=== PATIENT | male | born 1965 | race Caucasian/White ===

== ENCOUNTER 2021-08-15 12:06 | Inpatient (IN) | payer OTHER, SELFPAY ==
[~2021-08-15] VITALS: Ht 170.2 cm; Wt 86.2 kg
[2021-08-15 12:25] VITALS: BP 129/77
--- NOTE | 2021-08-15 12:30 | NUR ---
TENT 1
--- NOTE | 2021-08-15 12:32 | NUR ---
C/O COUGH X 11 DAYS, BODY ACH X 2 WEEKS, CHEST PAIN X 1 WEEK AND DIARRHEA,VOMITING BLOOD, LOSS OF APPITIE , WEAKNESS X 5 DAYS. COVID TESTED POSITIVE 5 DAYS AGO. PMH: DENIES
--- NOTE | 2021-08-15 13:00 | NUR ---
FLU, COVID ANTOINE, COVID PCR SWABS DONE.
[2021-08-15 14:10] LABS: APPEARANCE,URINE CLEAR (CLEAR); BILIRUBIN,URINE NEGATIVE (NEGATIVE); BLOOD, URINE 2+ (NEGATIVE); COLOR,URINE YELLOW (YELLOW); LEUKOCYTE ESTERASE ,URINE NEGATIVE (NEGATIVE); NITRITE, URINE NEGATIVE (NEGATIVE); UGLUCOSE NEGATIVE (NEGATIVE)
[2021-08-15] MEDS ORDERED: NACL 0.9% 2,000 ML IV ONE (14:35)
[2021-08-15] MEDS ORDERED: DEXAMETHASONE 4 MG/ML VIAL IVP ONE (14:35)
[2021-08-15] MEDS ORDERED: AZITHROMYCIN 500 MG in DEXTROSE 5% 250 ML IV ONE (14:35)
[2021-08-15 14:43] LABS: BASOPHILS % (AUTO) 0.3 % (0.0-2.0); EOSINOPHILS % (AUTO) 0.5 % (0.0-4.0); HEMATOCRIT 44.9 % (36-52); HEMOGLOBIN 15.6 g/dL (12.0-18.0); LYMPHOCYTES # (AUTO) 1.1 K/uL (2.0-11.5); LYMPHOCYTES % (AUTO) 15.3 % (20.5-51.1); MEAN CORPUSCULAR HEMOGLOBIN 30 pg (27-31); MEAN CORPUSCULAR HGB CONC 35 g/dL (33-37); MEAN CORPUSCULAR VOLUME 87.6 fL (80-94); MONOCYTES # (AUTO) 0.4 K/uL (0.8-1.0); MONOCYTES % (AUTO) 5.6 % (1.7-9.3); NEUTROPHILS # (AUTO) 5.6 K/uL (1.8-7.7); NEUTROPHILS % (AUTO) 78.3 % (42.2-75.2); PLATELET COUNT (AUTO) 424 K/uL (140-450); RED BLOOD CELL COUNT(AUTO) 5.13 MIL/uL (4.20-6.10); RED CELL DISTRIBUTION WIDTH 12.7 % (11.6-13.7); WHITE BLOOD COUNT (AUTO) 7.1 K/uL (4.8-10.8)
[2021-08-15] MEDS ORDERED: AZITHROMYCIN 500 MG INJ VIAL IV ONE (14:48)
[2021-08-15] MEDS ORDERED: cefTRIAXone 1,000 MG VIAL ONE (14:48)
--- NOTE | 2021-08-15 14:48 | NUR ---
TO ER BED 6
--- NOTE | 2021-08-15 15:21 | NUR ---
pt saturation @89% RA, per oscar waite, nc 3L placed at this time. oxygen increased to 96%
[2021-08-15 15:30] LABS: ALBUMIN 2.9 g/dL (3.4-5.0); ANION GAP 20.6 (8-16); CARBON DIOXIDE 20.8 mmol/L (21-32); CREATININE 0.9 mg/dL (0.6-1.3); POTASSIUM 3.4 mmol/L (3.5-5.1); TOTAL BILIRUBIN 0.5 mg/dL (0.0-1.0)
[2021-08-15 15:46] LABS: WBC,URINE 0-5 /HPF (0-5)
--- NOTE | 2021-08-15 15:50 | NUR ---
Patient appears to be resting comfortably in bed. Vital Signs within normal limits. Respirations even and unlabored.
--- NOTE | 2021-08-15 17:28 | NUR ---
Patient appears to be resting comfortably in bed. Vital Signs within normal limits. Respirations even and unlabored.
[2021-08-15] MEDS ORDERED: HYDROcodone/APAP 5/325 MG 1 TAB TAB PO PRN (17:30)
[2021-08-15] MEDS ORDERED: DOCUSATE SODIUM 100 MG GELCAP PO PRN (17:30)
[2021-08-15] MEDS ORDERED: SODIUM PHOS / POTASSIUM PHOS 1 PKT PDR PO PRN (17:30)
[2021-08-15] MEDS ORDERED: ONDANSETRON 4 MG/2 ML VIAL IM/IVP PRN (17:30)
[2021-08-15] MEDS ORDERED: ACETAMINOPHEN 325 MG TAB PO PRN (17:30)
[2021-08-15] MEDS ORDERED: remdesivir COMMUNICATION ORDER 1 EA MISC MC PRN (17:30)
[2021-08-15] MEDS ORDERED: MAGNESIUM OXIDE 400 MG TAB PO PRN (17:30)
[2021-08-15] MEDS ORDERED: MORPHINE SULFATE 2 MG/ML SYR IVP PRN (17:30)
[2021-08-15] MEDS ORDERED: POTASSIUM CHLORIDE 10 MEQ TABER PO PRN (17:30)
--- NOTE | 2021-08-15 18:00 | NUR ---
56 y/o male bib self from home, pt was c/o sore throat, productive cough, sob, cp (pressure sensation), n/v/d for 2 weeks. pt states was initially sick at home, is now feeling better. aa&ox4 welsh speaking, pt ambulates with assist, states he gets a little dizzy with exertion. lung sounds bilaterally crackles with wheezing throughout. heart rate even and tachy, pulses strong and cap refill <3. no edema noted at this time. pt has no wounds. denies dysuria, hematuria, fevers, chills, and cp at this time. pt states pain is 9/10 starkey at this time. hob elevated, bed in lowest position. ermd aware of pt status. nka med: denies pmh: denies
[2021-08-15 18:12] LABS: MAGNESIUM 2.2 mg/dL (1.8-2.4); PHOSPHORUS 2.8 mg/dL (2.5-4.9)
--- NOTE | 2021-08-15 18:40 | NUR ---
urinal emptied 650ml dark yellow, clear urine at this time
--- NOTE | 2021-08-15 18:57 | NUR ---
pt eating dinner at this time
--- NOTE | 2021-08-15 19:35 | NUR ---
Pt report given to keanu loya. Transfer of care at this time.
[2021-08-16] MEDS ORDERED: diphenhydrAMINE 50 MG/ML VIAL IVP ONE (01:25)
[2021-08-16] MEDS: PROMETH/CODEINE 6.25-10MG/5ML 5 ML UDC PO PRN ×2 (01:30→21:59)
[2021-08-16] MEDS: ALBUTEROL SULFATE/IPRATROPIU 3 ML SOL IH PRN ×2 (01:45→03:25)
[2021-08-16] MEDS ORDERED: DEXTROSE 50% 50 ML SYR IVP PRN (02:25)
--- NOTE | 2021-08-16 07:28 | NUR ---
GAVE RTANSFER OF CARE REPORT TO RITO AMEZCUA
--- NOTE | 2021-08-16 07:33 | NUR ---
RECEIVED REPORT FROM SEVEN DONG. ASSUMED CARE AT THIS TIME.
[2021-08-16] MEDS: BLOOD GLUCOSE MONITORING 1 DEV DEV FS SCH ×4 (07:52→21:55)
[2021-08-16] MEDS: INSULIN LISPRO SLIDING SCALE 100 UNITS/ML VIAL SUBQ PRN ×4 (08:12→21:56)
--- NOTE | 2021-08-16 08:35 | NUR ---
PATIENT APPEARS TO BE RESTING IN BED WITH EYES CLOSED, ON BEDSIDE LEASE ADMINISTRATION ANALYST, WILL CONTINUE TO MONITOR.
[2021-08-16 09:12] LABS: BASOPHILS % (AUTO) 0.2 % (0.0-2.0); HEMATOCRIT 42.3 % (36-52); HEMOGLOBIN 14.9 g/dL (12.0-18.0); LYMPHOCYTES # (AUTO) 0.5 K/uL (2.0-11.5); LYMPHOCYTES % (AUTO) 11.9 % (20.5-51.1); MEAN CORPUSCULAR HEMOGLOBIN 31 pg (27-31); MEAN CORPUSCULAR HGB CONC 35 g/dL (33-37); MEAN CORPUSCULAR VOLUME 87.5 fL (80-94); MONOCYTES # (AUTO) 0.4 K/uL (0.8-1.0); MONOCYTES % (AUTO) 8.9 % (1.7-9.3); NEUTROPHILS # (AUTO) 3.3 K/uL (1.8-7.7); PLATELET COUNT (AUTO) 498 K/uL (140-450); RED BLOOD CELL COUNT(AUTO) 4.83 MIL/uL (4.20-6.10); RED CELL DISTRIBUTION WIDTH 12.7 % (11.6-13.7); WHITE BLOOD COUNT (AUTO) 4.2 K/uL (4.8-10.8)
[2021-08-16] MEDS: VITAMIN D 400 IU TAB PO SCH (09:47)
[2021-08-16] MEDS: DEXAMETHASONE 4 MG/ML VIAL IVP SCH (09:47)
[2021-08-16] MEDS: PANTOPRAZOLE 40 MG TABEC PO SCH (09:47)
[2021-08-16] MEDS: ASCORBIC ACID 500 MG TAB PO SCH (09:48)
[2021-08-16] MEDS: ZINC SULF 220 MG CAP PO SCH (09:48)
[2021-08-16] MEDS: ENOXAPARIN 40 MG/0.4 ML SYR SUBQ SCH (09:49)
[2021-08-16 10:01] LABS: ALBUMIN 2.5 g/dL (3.4-5.0); CARBON DIOXIDE 22.1 mmol/L (21-32); CREATININE 0.8 mg/dL (0.6-1.3); POTASSIUM 4.1 mmol/L (3.5-5.1); TOTAL BILIRUBIN 0.4 mg/dL (0.0-1.0)
--- NOTE | 2021-08-16 10:22 | NUR ---
SATURATION 99% ON SUPPLEMENTAL OXYGEN AT 3 LPM VIA NC TITRATED FIO2 TO 2 LPM MATY/FIREPOT OPERATOR AND TENDER NOTIFIED
[2021-08-16] MEDS ORDERED: remdesivir CLINICAL MONITORING 1 EA MISC MC PRN (10:50)
[2021-08-16] MEDS ORDERED: REMDESIVIR. 200 MG in NACL 0.9% 100 ML IV SCH (13:00)
--- NOTE | 2021-08-16 13:00 | NUR ---
PATIENT PROVIDED WITH LUNCH TRAY, PATIENT SITTING UP IN BED EATING. PATIENT ON BEDSIDE WIRE WINDING MACHINE TENDER, ALL NEEDS MET AT THIS TIME.
--- NOTE | 2021-08-16 14:03 | NUR ---
SPOKE WITH PATIENTS SOTO WITH AN UPDATE ON PATIENT.
--- NOTE | 2021-08-16 16:31 | NUR ---
PATIENT HAS BEEN SCREENED AND CATEGORIZED MODERATE NUTRITION RISK. PATIENT WILL BE SEEN WITHIN 3-5 DAYS OF ADMISSION. SCAR MILES RD
--- NOTE | 2021-08-16 17:00 | NUR ---
PATIENT APPEARS TO BE RESTING IN BED, ON BEDSIDE VEHICLE BODY BUILDER, ALL NEEDS MET AT THIS TIME, WILL CONTINUE TO MONITOR.
--- NOTE | 2021-08-16 19:00 | NUR ---
PATIENT PROVIDED WITH DINNER TRAY, PATIENT SITTING UP IN BED EATING. ON BEDSIDE MARKET DEVELOPMENT EXECUTIVE, ALL NEEDS MET AT THIS TIME.
--- NOTE | 2021-08-16 19:33 | NUR ---
Pt report given to SEVEN WOLFE. Transfer of care at this time.
--- NOTE | 2021-08-16 20:00 | NUR ---
AWAKE, SITTING AT SIDE OF BED EATING DIET TRAY TOLERATED WELL
--- NOTE | 2021-08-16 22:00 | NUR ---
AWAKE, WATER GIVEN WITH WARM BLANKETS
--- NOTE | 2021-08-17 02:00 | NUR ---
RESTING IN BED WITH EYES CLOSED. O2 SAT 98
--- NOTE | 2021-08-17 06:00 | NUR ---
AWAKE. DENIES PAIN OR DISCOMFORT. PT PLACED ON R/A. O2 SAT REMAINS 97 - 98%
--- NOTE | 2021-08-17 07:30 | NUR ---
REPORT RECEIVED FROM SEVEN WOLFE FOR CONTINUITY OF PATIENT CARE.
--- NOTE | 2021-08-17 08:00 | NUR ---
PATIENT SITTING ON BED, A&0X4, DENIES ANY PAIN OR SOB AT THIS TIME.
[2021-08-17] MEDS: BLOOD GLUCOSE MONITORING 1 DEV DEV FS SCH ×4 (08:04→23:00)
[2021-08-17 08:05] LABS: BASOPHILS % (AUTO) 0.4 % (0.0-2.0); HEMATOCRIT 38.9 % (36-52); LYMPHOCYTES # (AUTO) 0.5 K/uL (2.0-11.5); LYMPHOCYTES % (AUTO) 6.2 % (20.5-51.1); MEAN CORPUSCULAR HEMOGLOBIN 31 pg (27-31); MEAN CORPUSCULAR HGB CONC 36 g/dL (33-37); MEAN CORPUSCULAR VOLUME 87.4 fL (80-94); MONOCYTES # (AUTO) 0.6 K/uL (0.8-1.0); MONOCYTES % (AUTO) 7.5 % (1.7-9.3); NEUTROPHILS # (AUTO) 7.2 K/uL (1.8-7.7); NEUTROPHILS % (AUTO) 85.9 % (42.2-75.2); PLATELET COUNT (AUTO) 628 K/uL (140-450); RED BLOOD CELL COUNT(AUTO) 4.45 MIL/uL (4.20-6.10); RED CELL DISTRIBUTION WIDTH 12.7 % (11.6-13.7); WHITE BLOOD COUNT (AUTO) 8.3 K/uL (4.8-10.8)
[2021-08-17] MEDS: INSULIN LISPRO SLIDING SCALE 100 UNITS/ML VIAL SUBQ PRN ×4 (08:09→23:00)
--- NOTE | 2021-08-17 08:20 | NUR ---
PATIENT PROVIDED WITH WATER AT BEDSIDE
[2021-08-17 08:21] LABS: ALBUMIN 2.5 g/dL (3.4-5.0); ANION GAP 16.8 (8-16); CARBON DIOXIDE 21.1 mmol/L (21-32); CREATININE 0.7 mg/dL (0.6-1.3); POTASSIUM 3.9 mmol/L (3.5-5.1); TOTAL BILIRUBIN 0.4 mg/dL (0.0-1.0)
--- NOTE | 2021-08-17 08:39 | NUR ---
P.T. NOTES P.T. EVAL COMPLETED; REFER TO EVAL FOR DETAILS; ENDORSED TO NURSING; O2 SAT ROOM AIR=83%, 2L=90-91%
--- NOTE | 2021-08-17 09:00 | NUR ---
PATIENT AMBULATED TO RESTROOM WITH STEADY GAIT
--- NOTE | 2021-08-17 09:05 | NUR ---
PATIENT AMBULATED BACK TO BED, RECONNECTED TO BEDSIDE MONITOR
[2021-08-17] MEDS: DEXAMETHASONE 4 MG/ML VIAL IVP SCH (09:40)
[2021-08-17] MEDS: ENOXAPARIN 40 MG/0.4 ML SYR SUBQ SCH (09:41)
[2021-08-17] MEDS: PANTOPRAZOLE 40 MG TABEC PO SCH (09:50)
[2021-08-17] MEDS: VITAMIN D 400 IU TAB PO SCH (09:50)
[2021-08-17] MEDS: ZINC SULF 220 MG CAP PO SCH (09:51)
[2021-08-17] MEDS: ASCORBIC ACID 500 MG TAB PO SCH (09:51)
[2021-08-17] MEDS: REMDESIVIR. 100 MG in NACL 0.9% 100 ML IV SCH (14:03)
--- NOTE | 2021-08-17 14:36 | NUR ---
PATIENT SITTIN AT BEDSIDE, PROVIDED WITH WATER AND FOOD AT BEDSIDE. ALL PATIENT NEEDS MET AT THIS TIME
--- NOTE | 2021-08-17 15:00 | NUR ---
PATIENT AMBULATED TO RESTROOM WITH STEADY GAIT.
--- NOTE | 2021-08-17 15:05 | NUR ---
PATIENT AMBULATED BACK TO BED, CONNECTED TO BEDSIDE MONITOR. WILL CONTINUE TO MONITOR
--- NOTE | 2021-08-17 16:45 | NUR ---
PROVIDED PATIENT WITH WATER AT BEDSIDE. ALL PATIENT NEEDS MET AT THIS TIME.
--- NOTE | 2021-08-17 17:50 | NUR ---
PATIENT RESTING COMFORTABLY IN BED. NO SIGNS OF DISTRESS NOTED AT THIS TIME. VITAL SIGNS STABLE, RESPIRATIONS EVEN AND UNLABORED. WILL CONTINUE TO MONITOR.
--- NOTE | 2021-08-17 19:29 | NUR ---
Pt report given to SEVEN WOLFE. Transfer of care at this time.
--- NOTE | 2021-08-17 21:03 | NUR ---
REPORT CALLED TO SEVEN WELDON
--- NOTE | 2021-08-17 21:20 | NUR ---
TO 127B VIA GURNEY ATTACHED TO CM. ACCOMPANIED BY RN AND ERT
--- NOTE | 2021-08-17 22:30 | NUR ---
RECEIVED REPORT FROM ER NURSE AIDEN. PT ARRIVED VIA WC. ADMITTED TO ROOM 126-B. PT A&OX4 VS: BP-145/80, P:87, RR:21, T:97.8, O2 SAT 86%. PT UPADLIB TO BATHROOM OXYGEN OFF. O2 3L/NC. REASSESSED AT 2300 O2 SAT 92%. PT HAS PRODUCTIVE COUGH WITH CONGESTION IN BILATERAL LUNG BASES. PT IS COVID 19+. WILL CONTINUE TO OBSERVE.
--- NOTE | 2021-08-17 23:00 | NUR ---
HS MEDS GIVEN. BS= 249 RECEIVED 16 UNITS LANTUS INSULIN, AND 4 UNITS HUMALOG PER SLIDING SCALE. ON TELE SR WITH PVC'S, HR 90. ALL SAFETY MEASURES IN PLACE. CONTINUE TO OBSERVE.
[2021-08-17] MEDS: INSULIN LANTUS 100 UNITS/ML 10 ML VIAL SUBQ SCH (23:05)
--- NOTE | 2021-08-18 06:00 | NUR ---
PT SLEPT SOUNDLY.RR EVEN AND UNLABORED. NAD. KI=779 COVERED WITH 2UNITS HUMALOG INSULIN PER SLIDING SCALE. CALL LIGHT WITHIN REACH. ALLSAFETY MEASURES IN PLACE. WILL CONTINUE TO OBSERVE.
[2021-08-18] MEDS: BLOOD GLUCOSE MONITORING 1 DEV DEV FS SCH ×4 (06:53→20:32)
[2021-08-18] MEDS: INSULIN LISPRO SLIDING SCALE 100 UNITS/ML VIAL SUBQ PRN ×3 (06:55→17:04)
[2021-08-18 07:20] LABS: BASOPHILS % (AUTO) 0.2 % (0.0-2.0); EOSINOPHILS % (AUTO) 0.1 % (0.0-4.0); HEMATOCRIT 39.1 % (36-52); HEMOGLOBIN 13.9 g/dL (12.0-18.0); LYMPHOCYTES # (AUTO) 0.7 K/uL (2.0-11.5); MEAN CORPUSCULAR HEMOGLOBIN 31 pg (27-31); MEAN CORPUSCULAR HGB CONC 36 g/dL (33-37); MEAN CORPUSCULAR VOLUME 85.9 fL (80-94); MONOCYTES # (AUTO) 0.7 K/uL (0.8-1.0); MONOCYTES % (AUTO) 6.7 % (1.7-9.3); NEUTROPHILS # (AUTO) 8.5 K/uL (1.8-7.7); PLATELET COUNT (AUTO) 708 K/uL (140-450); RED BLOOD CELL COUNT(AUTO) 4.55 MIL/uL (4.20-6.10); RED CELL DISTRIBUTION WIDTH 12.6 % (11.6-13.7); WHITE BLOOD COUNT (AUTO) 9.9 K/uL (4.8-10.8)
--- NOTE | 2021-08-18 07:25 | NUR ---
ENDORSED TO DAY SHIFT PT REPORT AND REVIEWED POC FOR CONTINUITY OF CARE.
--- NOTE | 2021-08-18 07:30 | NUR ---
RECEIVED REPORT FROM PLUMBING ASSEMBLER NURSE FOR CONTINUITY OF CARE. PT IN BED RESTING AT THIS TIME. RESPIRATIONS ARE EVEN AND UNLABORED. NO SIGNS OF DISTRESS NOTED. CALL LIGHT WITHIN REACH. ALL SAFETY MEASURES IN PLACE. WILL CONTINUE TO MONITOR.
[2021-08-18 08:04] LABS: ALBUMIN 2.5 g/dL (3.4-5.0); ANION GAP 16.4 (8-16); CARBON DIOXIDE 23.1 mmol/L (21-32); CREATININE 0.7 mg/dL (0.6-1.3); POTASSIUM 3.5 mmol/L (3.5-5.1); TOTAL BILIRUBIN 0.4 mg/dL (0.0-1.0)
[2021-08-18 08:09] VITALS: BP 149/78
[2021-08-18 08:13] LABS: LYMPHOCYTES % (AUTO) 6.6 % (20.5-51.1); NEUTROPHILS % (AUTO) 86.4 % (42.2-75.2)
[2021-08-18] MEDS: DEXAMETHASONE 4 MG/ML VIAL IVP SCH (09:38)
[2021-08-18] MEDS: VITAMIN D 400 IU TAB PO SCH (09:47)
[2021-08-18] MEDS: PANTOPRAZOLE 40 MG TABEC PO SCH (09:47)
[2021-08-18] MEDS: ASCORBIC ACID 500 MG TAB PO SCH (09:47)
--- NOTE | 2021-08-18 09:47 | NUR ---
ADMINISTERED ALL SCHEDULED MEDICATIONS. EDUCATED PT REGARDING MEDS ADMINISTERED. ANSWERED ALL QUESTIONS. PT TOLERATED WELL. WILL CONTINUE TO MONITOR.
[2021-08-18] MEDS: ENOXAPARIN 40 MG/0.4 ML SYR SUBQ SCH (09:48)
[2021-08-18] MEDS: ZINC SULF 220 MG CAP PO SCH (09:48)
--- NOTE | 2021-08-18 11:35 | NUR ---
BLOOD GLUCOSE WAS 270. COVERED WITH INSULIN PER MD ORDER. EDUCATED PT REGARDING BG READING AND INSULIN ADMIN. PT VERBALIZED UNDERSTANDING. WILL CONTINUE TO MONITOR.
--- NOTE | 2021-08-18 11:47 | NUR ---
(08/18/21) RD INITIAL ASSESSMENT COMPLETED PLEASE REFER TO NUTRITION ASSESSMENT UNDER CARE ACTIVITY FOR ESTIMATED NUTRITIONAL NEEDS. RD RECOMMENDATIONS: 1. CONTINUE CCHO 60 GM DIET TOLERATED. 2. CONSULT RDN PRN. 3. RD WILL F/U 3-5 DAYS; MODERATE RISK. NOE LESLIE, , RDN
[2021-08-18 12:00] VITALS: BP 129/77
[2021-08-18] MEDS: REMDESIVIR. 100 MG in NACL 0.9% 100 ML IV SCH (13:02)
--- NOTE | 2021-08-18 15:26 | NUR ---
DID ROUNDS ON PT. PT IN BED WATCHING TV AT THIS TIME. RESPIRATIONS ARE EVEN AND UNLABORED. NO SIGNS OF DISTRESS NOTED. NO COMPLAINTS OF PAIN OR DISCOMFORT AT THIS TIME. CALL LIGHT WITHIN REACH. ALL SAFETY MEASURES IN PLACE. WILL CONTINUE TO MONITOR.
[2021-08-18 16:00] VITALS: BP 137/85
--- NOTE | 2021-08-18 19:06 | NUR ---
PT IN BED RESTING AT THIS TIME. RESPIRATIONS ARE EVEN AND UNLABORED. NO COMPLAINTS OF SOB. NO COMPLAINTS OF PAIN OR DISCOMFORT. ALL NEEDS MET THROUGHOUT SHIFT. PT IS STABLE. WILL ENDORSE TO SHEET SEWER NURSE.
--- NOTE | 2021-08-18 19:08 | NUR ---
RECEIVED PT REPORT FROM AM NURSE FOR CONTINUITY OF CARE, PT RESTING IN BED. RR EVEN AND UNLABORED. O2 3L/ NC ON. NO COMPLAINT OF SOB. NO PAIN OR DISCOMFORT. STABLE. ALL SAFETY MEASURES IN PLACE.
[2021-08-18 20:00] VITALS: BP 122/76
[2021-08-18] MEDS: INSULIN LANTUS 100 UNITS/ML 10 ML VIAL SUBQ SCH (21:18)
--- NOTE | 2021-08-18 21:30 | NUR ---
ALL HS MEDS GIVEN. DENIES PAIN. NO N/V. DRY HACKING PRODUCTIVE COUGH; REMAINS ON O2 3L/NC. PT STATED HE BLEW HIS NOSE," IT WAS BLOCKED. BLOOD AND SNOT CAME OUT" NOW HE CAN BREATHE FINE.FP=860 COVERED WITH 4 UNITS HUMALOG INSULIN PER SLIDING SCALE. ALL SAFETY MEASURES IN PLACE. CONTINUE TO OBSERVE.
--- NOTE | 2021-08-18 23:00 | NUR ---
DR. WELCH ORDERED A CHEST ANGIO CAT SCAN R/O PE. DOMI FROM [facility] CALLED. NO CONSENT SIGNED. CALLED DR WELCH . NO REPLY OF 2329. ENDORSE TO DAYSHIFT TO FU. RE: CONSENT AND PROCEDURE.
[2021-08-19] VITALS: BP 141/82
[2021-08-19 04:45] VITALS: BP 136/83
[2021-08-19 05:55] LABS: EOSINOPHILS % (AUTO) 0.4 % (0.0-4.0); HEMOGLOBIN 13.7 g/dL (12.0-18.0); LYMPHOCYTES # (AUTO) 0.9 K/uL (2.0-11.5); LYMPHOCYTES % (AUTO) 7.9 % (20.5-51.1); MEAN CORPUSCULAR HEMOGLOBIN 31 pg (27-31); MEAN CORPUSCULAR HGB CONC 36 g/dL (33-37); MEAN CORPUSCULAR VOLUME 85.4 fL (80-94); MONOCYTES # (AUTO) 0.8 K/uL (0.8-1.0); MONOCYTES % (AUTO) 7.2 % (1.7-9.3); NEUTROPHILS # (AUTO) 9.3 K/uL (1.8-7.7); NEUTROPHILS % (AUTO) 84.5 % (42.2-75.2); PLATELET COUNT (AUTO) 750 K/uL (140-450); RED BLOOD CELL COUNT(AUTO) 4.45 MIL/uL (4.20-6.10); RED CELL DISTRIBUTION WIDTH 12.3 % (11.6-13.7)
[2021-08-19] MEDS: BLOOD GLUCOSE MONITORING 1 DEV DEV FS SCH ×4 (06:27→20:45)
[2021-08-19 06:50] LABS: ALBUMIN 2.5 g/dL (3.4-5.0); ANION GAP 12.9 (8-16); CARBON DIOXIDE 25.3 mmol/L (21-32); CREATININE 0.7 mg/dL (0.6-1.3); POTASSIUM 3.2 mmol/L (3.5-5.1); TOTAL BILIRUBIN 0.4 mg/dL (0.0-1.0)
--- NOTE | 2021-08-19 07:30 | NUR ---
ENDORSED PT REPORT REVIEWED POC WITH AM NURSE FOR CONTINUITY OF CARE.
--- NOTE | 2021-08-19 07:35 | NUR ---
RECEIVED REPORT FROM TRAIN OPERATIONS MANAGER NURSE. PT ASLEEP IN BED. BREATHING SYMMETRICAL. FLACC 0. CALL LIGHT PLACED WITHIN REACH. ALL SAFETY MEASURES IN PLACE.
[2021-08-19 08:00] VITALS: BP 140/81
[2021-08-19] MEDS: VITAMIN D 400 IU TAB PO SCH (09:52)
[2021-08-19] MEDS: ZINC SULF 220 MG CAP PO SCH (09:52)
[2021-08-19] MEDS: ASCORBIC ACID 500 MG TAB PO SCH (09:52)
[2021-08-19] MEDS: PANTOPRAZOLE 40 MG TABEC PO SCH (09:52)
[2021-08-19] MEDS: DEXAMETHASONE 4 MG/ML VIAL IVP SCH (09:53)
--- NOTE | 2021-08-19 09:58 | NUR ---
ALL SCHEDULED AM MEDICATIONS GIVEN PER MD ORDER. DENIES PAIN AT THIS TIME, NOTED WITH EPISODES OF DRY NON PRODUCTIVE COUGH. PRN K ALSO GIVEN FOR K LEVEL 3.2
[2021-08-19] MEDS: ENOXAPARIN 40 MG/0.4 ML SYR SUBQ SCH (10:14)
[2021-08-19] MEDS: INSULIN LISPRO SLIDING SCALE 100 UNITS/ML VIAL SUBQ PRN ×3 (11:43→20:46)
--- NOTE | 2021-08-19 11:45 | NUR ---
PT AWAKE IN BED. BREATHING SYMMETRICAL, ON O2 VIA NC AT 3L. DENIES PAIN AT THIS TIME. ACCUCHECK DONE, BLOOD SUGAR 209, INSULIN GIVEN PER SLIDING SCALE. CALL LIGHT WITHIN REACH. WILL CONTINUE TO MONITOR.
[2021-08-19 12:00] VITALS: BP 135/81
[2021-08-19] MEDS: REMDESIVIR. 100 MG in NACL 0.9% 100 ML IV SCH (12:53)
--- NOTE | 2021-08-19 14:18 | NUR ---
DISCHARGE PLANNING Order for home O2, home O2 eval needed, informed nurse. Addendum: 08/19/21 at 1542 by Idalmis Centeno CM Pt qualifies for home O2, faxed order/referral to [facility].
--- NOTE | 2021-08-19 14:40 | NUR ---
TRIAL OFF O2 DONE ON PT. PT's O2 DROPPED TO 85% ON ROOM AIR WHILE WALKING FROM DOOR TO RESTROOM DOOR. PT PUT BACK TO NC AT 3L AND O2 SAT IMPROVED TO 93%, PT BACK TO BED AND RESTING.
--- NOTE | 2021-08-19 14:50 | NUR ---
SPOKE WITH UM SPECIALIST, PT SHOULD BE NPO ATLEAST 2 HRS PRIOR TO PROCEDURE. INFORMED PT NOT TO EAT OR DRINK ANYTHING BY MOUTH DUE TO UPCOMING PROCEDURE AND VERBALIZED UNDERSTANDING. Addendum: 08/19/21 at 1644 by Geeta Pyle RN PER TECH, WILL CERAMIC ARTIST PT AT 1830 FOR PROCEDURE
[2021-08-19 16:00] VITALS: BP 113/70
--- NOTE | 2021-08-19 16:44 | NUR ---
ACCUCHECK DONE AND INSULIN GIVEN PER SLIDING SCALE. REMINDED PT NOT TO EAT OR DRINK ANYTHING BY MOUTH DUE TO RISK OF ASPIRATION, PT VERBALIZED UNDERSTANDING. WILL CONTINUE TO REINFORCE. PT DENIES PAIN. NO SOB NOTED AT THIS TIME. WILL CONTINUE TO MONITOR.
--- NOTE | 2021-08-19 18:21 | NUR ---
PT SITTING ON BED, ALERT/AWAKE. RESPIRATION EVEN AND UNLABORED. DENIES PAIN. CALL LIGHT WITHIN REACH. REINFORCED NOTHING BY MOUTH UNTIL PROCEDURE IS DONE AND VERBALIZED UNDERSTANDING. WILL CONTINUE TO MONITOR.
--- NOTE | 2021-08-19 19:25 | NUR ---
RECEIVED BEDSIDE REPORT FROM DAY SHIFT NURSE. PATIENT IS AWAKE, ALERT, AND COOPERATIVE. RESPIRATION EVEN UNLABORED ON 3L NC O2 SATING 94%. NO DISTRESS NOTED. SKIN IS WARM AND DRY. IV PATENT AND INTACT. PLAN OF CARE WAS DISCUSSED. ALL SAFETY MEASURES IN PLACE. BED IS AT LOW POSITION. CALL LIGHT WITHIN REACH. WILL CONTINUE TO MONITOR
--- NOTE | 2021-08-19 19:31 | NUR ---
ENDORSED REPORT TO PAN WASHER HAND NURSE FOR CONTINUITY OF CARE. PT IS STABLE. PLAN OF CARE DISCUSSED.
[2021-08-19 20:00] VITALS: BP 109/66
--- NOTE | 2021-08-19 20:20 | NUR ---
PATIENT OFF UNIT WENT TO CT SCAN WITH TEXTILE DESIGNER
--- NOTE | 2021-08-19 20:40 | NUR ---
PATIENT IS BACK FROM CT SCAN. VITALS WERE TAKEN. NO DISTRESS NOTED. WILL CONTINUE TO MONITOR
--- NOTE | 2021-08-19 20:45 | NUR ---
ALL SCHEDULED MEDS WERE GIVEN PER ORDER. WILL CONTINUE TO MONITOR
[2021-08-19] MEDS: INSULIN LANTUS 100 UNITS/ML 10 ML VIAL SUBQ SCH (20:47)
[2021-08-20] VITALS: BP 134/76
--- NOTE | 2021-08-20 00:07 | NUR ---
VITALS WERE TAKEN. NO DISTRESS NOTED
--- NOTE | 2021-08-20 00:18 | NUR ---
PT LAYING IN BED HOB ELEVATED, BS CLEAR/DIMINISHED THROUGHOUT, NO SIGNS OF RESPIRATORY DISTRESS NOTED AT THIS TIME. PT IS CURRENTLY SATING 95% ON 3LPM NC WILL CONTINUE TO MONITOR.
--- NOTE | 2021-08-20 02:02 | NUR ---
MADE ROUNDS, PATIENT SLEEPING NO DISTRESS NOTED
[2021-08-20 04:00] VITALS: BP 108/65
--- NOTE | 2021-08-20 04:10 | NUR ---
VITALS WERE TAKEN. NO DISTRESS NOTED.
--- NOTE | 2021-08-20 05:10 | NUR ---
AM CARE PROVIDED
[2021-08-20] MEDS: BLOOD GLUCOSE MONITORING 1 DEV DEV FS SCH ×2 (06:36→11:30)
[2021-08-20] MEDS: INSULIN LISPRO SLIDING SCALE 100 UNITS/ML VIAL SUBQ PRN (06:38)
[2021-08-20 06:52] LABS: BASOPHILS % (AUTO) 0.3 % (0.0-2.0); EOSINOPHILS # (AUTO) 0.2 K/uL (0-0.4); EOSINOPHILS % (AUTO) 1.9 % (0.0-4.0); HEMATOCRIT 39.5 % (36-52); HEMOGLOBIN 13.9 g/dL (12.0-18.0); LYMPHOCYTES % (AUTO) 10.4 % (20.5-51.1); MEAN CORPUSCULAR HEMOGLOBIN 31 pg (27-31); MEAN CORPUSCULAR HGB CONC 35 g/dL (33-37); MEAN CORPUSCULAR VOLUME 87.7 fL (80-94); MONOCYTES # (AUTO) 0.5 K/uL (0.8-1.0); NEUTROPHILS # (AUTO) 7.6 K/uL (1.8-7.7); NEUTROPHILS % (AUTO) 82.4 % (42.2-75.2); PLATELET COUNT (AUTO) 737 K/uL (140-450); RED BLOOD CELL COUNT(AUTO) 4.51 MIL/uL (4.20-6.10); RED CELL DISTRIBUTION WIDTH 12.7 % (11.6-13.7); WHITE BLOOD COUNT (AUTO) 9.2 K/uL (4.8-10.8)
[2021-08-20 07:00] LABS: ALBUMIN 2.4 g/dL (3.4-5.0); ANION GAP 13.4 (8-16); CARBON DIOXIDE 25.2 mmol/L (21-32); CREATININE 0.7 mg/dL (0.6-1.3); POTASSIUM 3.6 mmol/L (3.5-5.1); TOTAL BILIRUBIN 0.4 mg/dL (0.0-1.0)
--- NOTE | 2021-08-20 07:34 | NUR ---
ENDORSED PATIENT TO DAY SHIFT NURSE FOR CONTINUITY OF CARE
--- NOTE | 2021-08-20 07:36 | NUR ---
RECEIVED BEDSIDE REPORT FROM PROVIDER SERVICE REPRESENTATIVE NURSE FOR CONTINUITY OF CARE. PT BREATHING IS EVEN AND UNLABORED. ON O2 NC AT 3L. NO S/S OF DISTRESS NOTED. AOX4. L HAND 18G SL. PT IS STABLE.
[2021-08-20 08:00] VITALS: BP 114/66
[2021-08-20] MEDS ORDERED: VITC500 PO (08:56)
[2021-08-20] MEDS ORDERED: PANT40EC56 PO (08:56)
[2021-08-20] MEDS ORDERED: DEC4 PO (08:56)
[2021-08-20] MEDS ORDERED: LANTUS SUBQ (08:56)
[2021-08-20] MEDS ORDERED: ZINC220C29 PO (08:56)
[2021-08-20] MEDS ORDERED: VITD400 PO (08:56)
[2021-08-20] MEDS ORDERED: APIX2.5 PO (08:56)
[2021-08-20] MEDS: ASCORBIC ACID 500 MG TAB PO SCH (09:00)
[2021-08-20] MEDS: PANTOPRAZOLE 40 MG TABEC PO SCH (09:00)
[2021-08-20] MEDS: ZINC SULF 220 MG CAP PO SCH (09:00)
[2021-08-20] MEDS: VITAMIN D 400 IU TAB PO SCH (09:00)
[2021-08-20] MEDS: ENOXAPARIN 40 MG/0.4 ML SYR SUBQ SCH (09:00)
[2021-08-20] MEDS: DEXAMETHASONE 4 MG/ML VIAL IVP SCH (09:00)
--- NOTE | 2021-08-20 10:01 | NUR ---
PTS SPO2 ON 3LPM NC WAS 95%.. TOOK OXYGEN OFF OF PT AND AT ROOM AIR PATIENT TOLERATED WITHOUT O2 FOR 1 MIN 35 SEC BEFORE SPO2 DROPPED BELOW 85%. PUT PATIENT BACK ON 3 LPM AND PT SATS TOOK A LITTLE WHILE TO CLIMB BACK UP ABOVE 90%. PATIENT WILL CONTINUE TO BE MONITORED.
--- NOTE | 2021-08-20 11:12 | NUR ---
DC PLANNING: O2 SATS ON RA DOCUMENTED, PACKET SENT TO [facility]. MARIIA SPOKE WITH THE PATIENTS SOTO, THE PATIENT LIVES WITH HIS AND MOTHER IN [place] IN A FIRST FLOOR APARTMENT. PRIOR TO COMING TO HOSPITAL THE PATIENT WAS INDEPENDENT IN ALL ACTIVITIES, NO H/O HOME HEALTH OR DME USE. MARIIA WILL FOLLOW UP WITH [facility] ([phone]) TO CONFIRM DELIVERY OF HOME O2 TO HOSPITAL, AND WILL FOLLOW. Addendum: 08/20/21 at 1638 by Trudy Acuna CM DC PLANNING: MARIIA CONFIRMED WITH [facility] THAT HOME O2 WILL BE DELIVERED TO THE HOME THIS EVENING. CM WILL FOLLOW.
--- NOTE | 2021-08-20 11:44 | NUR ---
PT BREATHING IS EVEN AND UNLABORED. ON RA. NO S/S OF DISTRESS NOTED. RIGHT IJ SL. PT IS STABLE.
--- NOTE | 2021-08-20 13:30 | NUR ---
PT BREATHING IS EVEN AND UNLABORED. ON RA. NO S/S OF DISTRESS NOTED. PT IS STABLE. IV IS TAKEN OUT AND INTACT. PT IS WHEELED TO FROM TO BE PICKED UP BY FAMILY. PT GRATEFUL FOR CARE.
[2021-08-20] MEDS: REMDESIVIR. 100 MG in NACL 0.9% 100 ML IV SCH (13:42)
== END 2021-08-20 13:30 | disposition home or self-care (01) | DRG 177 ==
LOC: MED 12:06 → MTU 17:34 → MMU 08-17 16:46
PROVIDERS: ADMIT Hospitalist; ATTEND Hospitalist
PROC: XW033E5 Introduction of Remdesivir Anti-infective into Peripheral Vein, Percutaneous Approach, New Technology Group 5 (ICD-10-PCS; principal; 2021-08-17)
DX: U07.1 COVID-19 (principal); J96.01 Acute respiratory failure with hypoxia; J12.82 Pneumonia due to coronavirus disease 2019; E87.1 Hypo-osmolality and hyponatremia; E44.0 Moderate protein-calorie malnutrition; D68.59 Other primary thrombophilia; E87.6 Hypokalemia; E11.65 Type 2 diabetes mellitus with hyperglycemia; R74.01 Elevation of levels of liver transaminase levels; E86.0 Dehydration; E66.9 Obesity, unspecified; Z68.29 Body mass index [BMI] 29.0-29.9, adult
CPT/HCPCS: 36415; 71045; 71275; 80053; 81001; 82948; 83036; 83605; 83735; 84100; 84484; 85025; 85379; 86140; 87040; 87081; 87086; 93005; 94640; 96365; 96368; 96375; 97116; 97163-GP; 99291; J0456; J0696; J1100; J1200; J1650; J1815; Q9967; U0003